=== PATIENT | male | born 2000 | race Two or more races ===

== ENCOUNTER 2021-06-10 04:59 | Emergency (ER) | payer OTHER ==
[~2021-06-10] VITALS: Ht 180.3 cm; Wt 65.8 kg
[2021-06-10 05:08] VITALS: BP 125/72
== END 2021-06-10 05:26 | disposition home or self-care (01) ==
LOC: ER 05:10
DX: S60.444A External constriction of right ring finger, initial encounter (principal); F17.200 Nicotine dependence, unspecified, uncomplicated; Z60.2 Problems related to living alone; W49.04XA Ring or other jewelry causing external constriction, initial encounter; Y93.89 Activity, other specified; Y92.89 Other specified places as the place of occurrence of the external cause; Y99.8 Other external cause status